=== PATIENT | male | born 1960 ===

== ENCOUNTER 2020-03-16 09:50 | Outpatient (CLI) | payer OTHER | END 2020-03-16 10:00 | disposition home or self-care (01) | LOC: RAD 09:50 | PROVIDERS: ATTEND Internal Medicine Cardiovascular Disease | DX: M25.78 Osteophyte, vertebrae (principal); K76.0 Fatty (change of) liver, not elsewhere classified; R10.84 Generalized abdominal pain; M12.88 Other specific arthropathies, not elsewhere classified, other specified site; M46.47 Discitis, unspecified, lumbosacral region ==

== ENCOUNTER → 2020-05-18 | Outpatient (CLI) | payer OTHER | END | disposition home or self-care (01) | LOC: RAD 10:02 | PROVIDERS: ATTEND Physical Medicine & Rehabilitation | DX: S90.31XA Contusion of right foot, initial encounter (principal) ==

== ENCOUNTER 2020-06-02 | Outpatient (CLI) | payer OTHER | END 2020-06-02 09:57 | disposition home or self-care (01) | LOC: PPH VACUNA | DX: Z23 Encounter for immunization (principal) ==

== ENCOUNTER → 2020-06-23 15:00 | Outpatient (CLI) | payer OTHER | END | disposition home or self-care (01) | LOC: PPH VACUNA 15:00 | DX: Z23 Encounter for immunization (principal) ==

== ENCOUNTER 2020-06-24 09:10 | Outpatient (CLI) | payer OTHER | END 2020-06-24 09:20 | disposition home or self-care (01) | LOC: RAD 09:10 | PROVIDERS: ATTEND Physical Medicine & Rehabilitation | DX: S92.5 Fracture of lesser toe(s) (principal); M17.11 Unilateral primary osteoarthritis, right knee; M17.12 Unilateral primary osteoarthritis, left knee ==

== ENCOUNTER 2020-12-31 09:59 | Outpatient (CLI) | payer OTHER | END 2020-12-31 10:10 | disposition home or self-care (01) | LOC: MRI 09:59 | PROVIDERS: ATTEND Physical Medicine & Rehabilitation | DX: S83.242A Other tear of medial meniscus, current injury, left knee, initial encounter (principal); M17.12 Unilateral primary osteoarthritis, left knee | CPT/HCPCS: 73721 ==

== ENCOUNTER 2021-01-12 10:17 | Outpatient (CLI) | payer OTHER | END 2021-01-12 10:26 | disposition home or self-care (01) | LOC: RAD 10:17 | PROVIDERS: ATTEND Physical Medicine & Rehabilitation | DX: M19.041 Primary osteoarthritis, right hand (principal); M54.2 Cervicalgia ==

== ENCOUNTER 2021-01-13 13:10 | Outpatient (CLI) | payer OTHER | END 2021-01-13 13:13 | disposition home or self-care (01) | LOC: PPH VACUNA 13:10 | PROVIDERS: ATTEND Emergency Medicine Pediatric Emergency Medicine | DX: Z23 Encounter for immunization (principal) ==

== ENCOUNTER 2021-02-03 10:24 | Outpatient (CLI) | payer OTHER | END 2021-02-03 10:41 | disposition home or self-care (01) | LOC: RAD 10:24 | PROVIDERS: ATTEND Physical Medicine & Rehabilitation | DX: M25.511 Pain in right shoulder (principal) ==

== ENCOUNTER 2021-04-21 17:36 | Emergency (ER) | payer OTHER ==
[~2021-04-21] VITALS: Ht 170.2 cm; Wt 86.2 kg
[2021-04-21] MEDS ORDERED: PYRIDIUM100 M1 PO ×2 (21:06→21:08)
[2021-04-21] MEDS ORDERED: CIPRO500 MG PO (21:07)
[2021-04-21] MEDS ORDERED: PYRIDIUM100 MG PO (21:07)
[2021-04-21] MEDS ORDERED: TAMS0.4C PO (21:07)
== END 2021-04-21 21:12 | disposition home or self-care (01) ==
LOC: ER 17:36
DX: N39.0 Urinary tract infection, site not specified (principal); N20.0 Calculus of kidney

== ENCOUNTER 2021-07-27 08:00 | Outpatient (CLI) | payer OTHER ==
[~2021-07-27 08:00] MED LIST: CIPRO500 MG PO; PYRIDIUM100 M1 PO; PYRIDIUM100 MG PO; TAMS0.4C PO
== END 2021-07-27 08:30 | disposition home or self-care (01) ==
LOC: PPH VACUNA 08:00
PROVIDERS: ATTEND Emergency Medicine Pediatric Emergency Medicine
DX: Z23 Encounter for immunization (principal); Z71.85 Encounter for immunization safety counseling

== ENCOUNTER 2022-02-16 14:13 | Outpatient (CLI) | payer OTHER | END 2022-02-16 14:23 | disposition home or self-care (01) | LOC: PPH VACUNA 14:13 | PROVIDERS: ATTEND Emergency Medicine Pediatric Emergency Medicine | DX: Z23 Encounter for immunization (principal) ==

== ENCOUNTER 2022-02-16 14:14 | Outpatient (CLI) | payer OTHER | END 2022-02-16 14:24 | disposition home or self-care (01) | LOC: PPH VACUNA 14:14 | PROVIDERS: ATTEND Emergency Medicine Pediatric Emergency Medicine | DX: Z23 Encounter for immunization (principal) ==

== ENCOUNTER 2022-04-27 09:25 | Outpatient (CLI) | payer OTHER | END 2022-04-27 09:26 | disposition home or self-care (01) | LOC: SONOGRAMA 09:25 | DX: K76.0 Fatty (change of) liver, not elsewhere classified (principal) ==

== ENCOUNTER 2023-06-21 11:05 | Outpatient (CLI) | payer OTHER | END 2023-06-21 11:19 | disposition home or self-care (01) | LOC: RAD 11:05 | PROVIDERS: ATTEND Physical Medicine & Rehabilitation | DX: M25.561 Pain in right knee (principal); M25.562 Pain in left knee; M25.511 Pain in right shoulder ==

== ENCOUNTER 2023-09-28 13:31 | Outpatient (CLI) | payer OTHER | END 2023-09-28 13:39 | disposition home or self-care (01) | LOC: RAD 13:31 | PROVIDERS: ATTEND Physical Medicine & Rehabilitation | DX: M54.50 Low back pain, unspecified (principal) ==

== ENCOUNTER 2024-09-10 11:22 | Outpatient (CLI) | payer OTHER | END 2024-09-10 11:28 | disposition home or self-care (01) | LOC: SONOGRAMA 11:22 | DX: K76.0 Fatty (change of) liver, not elsewhere classified (principal) ==